=== PATIENT | female | born 1955 | race African-American/Black ===

== ENCOUNTER 2021-09-28 08:08 | Emergency (ER) | payer OTHER ==
--- NOTE | 2021-09-28 09:07 | Emergency Department Report ---
ED Eye Problem HPI - General Chief complaint: Eye Problems Stated complaint: HAVING EYE PROBLEMS Time Seen by Provider: 09/28/21 08:47 Source: patient, family Mode of arrival: Ambulatory Limitations: Language Barrier - History of Present Illness Initial comments: 66-year-old Persian female brought in by her and her daughters translating comes in for left eye redness. They deny any trauma to the eye. Does not wear contacts. No pain. Has a history of diabetes. No change of vision. Noticed that 2 days ago. chief complaint: eye redness Onset/Timin -: days(s) Onset Description: unknown Location: left eye If Injury: none Severity scale (0 -10): 0 Consistency: constant Associated Symptoms: none Treatments Prior to Arrival: none - Related Data Allergies Allergy/AdvReac Type Severity Reaction Status Date / Time No Known Allergies Allergy Unverified 09/28/21 08:20 ED Review of Systems ROS: Stated complaint: HAVING EYE PROBLEMS Other details as noted in HPI Comment: All other systems reviewed and negative ED Physical Exam - General Limitations: Language Barrier General appearance: alert, in no apparent distress - Head Head exam: Present: atraumatic, normocephalic - Eye Eye exam: Present: normal appearance, other (Left eye sclera hematoma around 7:00) - ENT ENT exam: Present: normal exam, mucous membranes moist, normal external ear exam - Neck Neck exam: Present: normal inspection - Respiratory Respiratory exam: Absent: respiratory distress, accessory muscle use - Cardiovascular Cardiovascular Exam: Present: regular rate, normal rhythm. Absent: systolic murmur, diastolic murmur, rubs, gallop - GI/Abdominal GI/Abdominal exam: Present: soft, normal bowel sounds - Extremities Exam Extremities exam: Present: normal inspection - Back Exam Back exam: Present: normal inspection, full ROM - Neurological Exam Neurological exam: Present: alert, oriented X3, normal gait - Psychiatric Psychiatric exam: Present: normal affect, normal mood - Skin Skin exam: Present: warm, dry, intact, normal color. Absent: rash ED Course Vital Signs 09/28/21 08:22 Temperature 98.8 F Pulse Rate 82 Respiratory 20 Rate Blood Pressure 144/76 [Right] O2 Sat by Pulse 99 Oximetry ED Medical Decision Making - Medical Decision Making 66-year-old Persian female brought in by her and her daughters translating comes in for left eye redness. They deny any trauma to the eye. Does not wear contacts. No pain. Has a history of diabetes. No change of vision. Noticed that 2 days ago. Critical care attestation.: If time is entered above; I have spent that time in minutes in the direct care of this critically ill patient, excluding procedure time. 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 R?t melvin tr?ng ?? b?n arturo di v?i bc s? nhn karly v nh cung c?p d?ch v? ch?m sc chnh c?a b?n. Referrals: PRIMARY MD CONNER [Primary Care Provider] - 3-5 Days [facility] [Provider Group] - 3-5 Days POLO CEE MD [Staff Physician] - 3-5 Days Time of Disposition: 09:07
[2021-09-28 09:31] VITALS: BP 112/64
== END 2021-09-28 09:33 | disposition home or self-care (01) ==
LOC: ED 08:08
DX: H11.32 Conjunctival hemorrhage, left eye (principal); H57.89 Other specified disorders of eye and adnexa
CPT/HCPCS: 99282